=== PATIENT | female | born 1990 | race Native Hawaiian/Other Pacific Islander ===

== ENCOUNTER 2017-11-05 14:24 | Outpatient (CLI) | payer BC | END 2017-11-05 22:08 | disposition home or self-care (01) | LOC: LABW 14:24 | DX: R63.5 Abnormal weight gain (principal); L70.0 Acne vulgaris; N93.8 Other specified abnormal uterine and vaginal bleeding | CPT/HCPCS: 36415; 82627; 83001; 83002; 84146; 84402; 84403; 84436; 84439; 84443; 84479 ==

== ENCOUNTER 2022-10-01 07:18 | Emergency (ER) | payer BC ==
[~2022-10-01] VITALS: Ht 172.7 cm; Wt 90.7 kg
[2022-10-01 07:31] VITALS: BP 141/86; TEMP 97.2
[2022-10-01 07:46] LABS: PLATELET COUNT 294 K/uL (152-353)
[2022-10-01 07:49] LABS: POTASSIUM 4.1 mmol/L (3.6-5.2)
== END 2022-10-01 07:41 | disposition left against medical advice (07) ==
LOC: ED 07:18
PROVIDERS: Family Medicine
DX: R10.32 Left lower quadrant pain (principal); R10.12 Left upper quadrant pain; N83.209 Unspecified ovarian cyst, unspecified side
CPT/HCPCS: 80053; 81000; 81025; 83690; 85027; 99283